=== PATIENT | female | born 1945 | race Caucasian/White ===

== ENCOUNTER → 2017-04-07 | Outpatient (CLI) | payer MEDICARE, BC ==
[~2017-04-07] MED LIST: ACET-62 PO; ACET1TAB12 PO; ASPI-557 PO; CALC-191 PO; CRAN500C3 PO; GADOBUTROL 10mMol/10ml INJECTION IV ONE; IOTHALAMATE MEGLUMINE 60% (600mg/ml) 30ml INJ IV ONE; LATA2.5D6 BOTH EYES; LISI10TA7 PO; LOVA20TA3 PO; METF500T4 PO; NORMAL SALINE 50 ML IV ONE
--- NOTE | 2017-04-07 14:44 | DI ---
Indication:ITS.REASON: M25.511 PAIN IN RT SHOULDER Procedure:ARTHROGRAM SHOULDER RT W/FL. SHOULDER INJECTION FOR MRI ARTHROGRAM: After discussing the details of the procedure, including the risks, the patient wished to proceed. Informed consent was obtained. A preprocedural timeout was performed to confirm the correct patient and procedure. Using aseptic technique, local lidocaine anesthetic, and fluoroscopic guidance throughout, a 22-gauge infiltrating needle was directed through the rotator cuff interval and into the joint of the right shoulder. A small amount of x-ray contrast was injected to confirm proper intra-articular placement of the needle tip. A fluoroscopic image was obtained. Following this, 8 cc of dilute gadolinium were slowly instilled within the joint of the right shoulder. The needle was removed. The patient tolerated this procedure well. Following this, the patient was taken by wheelchair to MRI for her scan. Please see the separate MRI report. Impression: Technically successful right intra-articular shoulder joint injection for a MRI arthrogram. Fluoroscopy dose: 0.89 mGy (Cumulative air kerma) Parish Pelayo RPA/ARIANA performed this under my personal supervision. .
--- NOTE | 2017-04-07 16:53 | DI ---
Indication: ITS.REASON: M25.511 PAIN IN RT SHOULDER MRI SHOULDER RIGHT W/CONTRAST: Comparison: Right shoulder arthrogram earlier in the day Technique: Patient is scanned utilizing T1 and T2-weighted image sequences after intra-articular contrast is administered. Findings: Patient showed significant tear of the rotator cuff with abnormal extravasation of the gadolinium into the Spear margin of the shoulder. Patient shows some artifact from evidently a prior cuff repair. The patient shows no suggestion of an acute bony fracture. There is mild degenerative changes in the AC joint. Labrum is intact. Impression: 1. Patient showed significant tearing of the rotator cuff tendon after a previous repair. There is abnormal extravasation of the gadolinium superiorly above the cuff. 2. No acute fracture identified. There is some alteration in the signal about the humeral head but this is most likely due to artifact from the prior surgery. 3. Degenerative changes about the AC joint. .
== END ==
LOC: IMA 12:22
PROVIDERS: ATTEND Physician Assistant Surgical
DX: M25.511 Pain in right shoulder (principal); M75.101 Unspecified rotator cuff tear or rupture of right shoulder, not specified as traumatic; M19.011 Primary osteoarthritis, right shoulder
CPT/HCPCS: 23350; 73222; 77002; A9585; J7050; Q9961

== ENCOUNTER 2018-06-10 10:27 | Observation (INO) ==
--- OUTSIDE RECORDS SUMMARY | 2018-06-10 11:08 | External Medical Summary | Referral Summary ---
:1945 Author Organization [facility] Address [address] [place] [address] Care Team Providers Name Role Phone Beata Sánchez Primary Care Physician Encounter [facility] [id number] Date(s): 12/17/17 - 12/17/17 [facility] [address] [address] [place] [address]- [place] Discharge Diagnosis: Orthopedic aftercare Discharge Disposition: 01-Home or Self Care Attending Physician: Lucia Harrison APRN Admitting Physician: Lucia Harrison APRN Vital Signs Most recent to oldest [Reference Range]: 1 Respiratory Rate [14-20 br/min] 18 br/min (12/17/17 1:35 PM) Problem List Condition Effective Dates Status Health Status Informant Chronic renal insufficiency(Confirmed) Active High cholesterol(Confirmed) Active Hypertension(Confirmed) Active Obesity(Confirmed) Active patient Diabetes mellitus type II, 08/07/16 Active controlled(Confirmed) Allergies, Adverse Reactions, Alerts Substance Reaction Severity Status oxyCODONE VOMITING Active HYDROcodone Active Medications Aspir 81 oral delayed release tablet 81 mg 1 tabs, Oral, Daily, OTC, # 30 tabs, 0 Refill(s), other reason (Rx) Start Date: 08/15/16 Status: OrderedCozaar 25 mg oral tablet 25 mg 1 tabs, Oral, Daily, # 90 tabs, 1 Refill(s), Pharmacy: [facility], To replace Lisinopril, 1 tabs Oral Daily Start Date: 02/17/17 Status: Orderedcranberry 1 tabs, Oral, Daily, 0 Refill(s) Start Date: 08/28/16 Status: OrderedEye Drops Eye Drops, See Instructions, 1 drop each eye daily for glaucoma, 0 Refill(s) Start Date: 10/28/14 Status: Orderedgabapentin 300 mg oral capsule 300 mg 1 caps, Oral, Bedtime (once a day), # 30 caps, 0 Refill(s), Pharmacy: [facility] 2428,1 caps Oral Bedtime (once a day) Start Date: 08/06/17 Status: Orderedlovastatin 20 mg oral tablet See Instructions, TAKE 1 TABLET EVERY DAY-DISCONTINUE ALTOPREV, # 90 tabs, 3 Refill(s), eRx: [facility], TAKE 1 TABLET EVERY DAY- DISCONTINUE ALTOPREV Start Date: 10/18/16 Status: OrderedmetFORMIN 500 mg oral tablet 500 mg 1 tabs, Oral, BID, # 180 tabs, 1 Refill(s), Pharmacy: [facility] Delivery, Do not fill the 30 day supply, use this RX., 1 tabs Oral BID Start Date: 05/05/17 Status: OrderedOne touch vario control solutions One touch vario control solutions, See Instructions, use to monitor quality assurance calibrator of glucose meteras needed. DX: E11.65, # 1 Each, 0 Refill(s), Pharmacy: [facility] 2428, use to monitor quality assurance calibrator of glucose meter as needed. DX: E11.65 Start Date: 08/29/16 Status: OrderedOne touch vario lancets One touch vario lancets, See Instructions, Use to test blood sugars bid fasting and 2 hours postprandial of one meal. DX: E11.65, # 200 Each, 1 Refill(s), Pharmacy: [facility], Use to test blood sugars bid fasting and 2 hours postprandi... Start Date: 08/29/16 Status: OrderedOne Touch Vario Test Strips One Touch Vario Test Strips, See Instructions, Use to test blood sugars bid fasting and 2 hours postprandial of one meal. DX: E11.65, # 200 Each, 1 Refill(s), Pharmacy: [facility], Use to test blood sugars bid fasting and 2 hours postpr... Start Date: 08/29/16 Status: OrderedProbiotic Formula 1 caps, Oral, Daily, 0 Refill(s) Start Date: 08/06/17 Status: OrderedTylenol Extra Strength 500 mg oral tablet mg tabs, Oral, q6hr, as needed for fever, 0 Refill(s) Start Date: 08/06/17 Status: Ordered Immunizations Given and Recorded Vaccine Date Status Refusal Reason influenza virus vaccine, inactivated 09/24/16 Given influenza virus vaccine, inactivated 09/14/15 Given influenza virus vaccine, inactivated1 08/26/14 Recorded pneumococcal 13-valent conjugate vaccine 08/15/16 Given tetanus/diphth/pertuss (Tdap) adult/adol 08/15/16 Given pneumococcal 23-polyvalent vaccine 08/31/13 Recorded influenza virus vaccine, live 08/31/13 Given influenza virus vaccine, live 08/18/12 Given tetanus-diphth toxoids (Td) adult/adol 04/15/01 Given 1Location History: See scanned document Procedures Procedure Date Related Diagnosis Body Site Status post reverse arthroplasty of right 06/24/17 shoulder History of arthroscopy of right shoulder1 10/29/16 Colonoscopic polypectomy2 08/09/15 Hip replacement R 2007 Vaginal hysterectomy for prolapse 2001 1Open biceps tenodesis, hardware [id number] adenoma 2, no diverticula seen, repeat in 5 years Social History Social History Type Response Smoking Status Never smoker entered on: 10/28/14 Assessment and Plan Extracted from: Title: Office Visit Note Author: Lucia Harrison APRN Date: 12/17/17 Orthopedic aftercare X-rays were reviewed with the patient in detail. The patient was given a stress balland told touse daily toimprove the strength in her hand. She was given hand exercises to completeto help w ith the numbness and tingling. She is to call the office if her n/t persists over the next 2-3 months. She is to follow-up for her shoulderin [address] Musa for her 1 yr post-op. Pt is in agreement with this plan. All questions were answered and concerns addressed in clinic. The patient was given my card and instructed to call with any further concerns or questions. Ordered: Office Visit Level 3 Est 79273 Right shoulder pain
--- OUTSIDE RECORDS SUMMARY | 2018-06-10 11:08 | External Medical Summary | Referral Summary ---
:1945 Author Organization [facility] Address [address] [place] [address] Care Team Providers Name Role Phone Beata Sánchez Primary Care Physician Juan Manuel Lin Primary Care Physician Encounter [facility] Date(s): 02/23/18 - 02/23/18 [facility] [address] [address] [place] [address]- Encounter Diagnosis Neuropraxia of right ulnar nerve (Discharge Diagnosis) - 02/23/18 Discharge Disposition: 01-Home or Self Care Attending Physician: Benny Sheldon MD Admitting Physician: Benny Sheldon MD Vital Signs Most recent to oldest [Reference Range]: 1 Respiratory Rate [14-20 br/min] 19 br/min (02/23/18 1:21 PM) Problem List Condition Effective Dates Status [...] Daily, # 90 tabs, 1 Refill(s), Pharmacy: [facility], To replace Lisinopril, 1 tabs Oral Daily Start Date: 02/17/17 Status: Orderedcranberry 1 tabs, Oral, Daily, 0 Refill(s) Start Date: 08/28/16 Status: Orderedgabapentin 300 mg oral capsule 300 mg 1 caps, Oral, Bedtime (once a day), # 30 caps, 0 Refill(s), Pharmacy: [facility] 2428,1 caps Oral Bedtime (once a day) Start Date: 08/06/17 Status: Orderedlovastatin 20 mg oral tablet See Instructions, TAKE 1 TABLET EVERY DAY-DISCONTINUE ALTOPREV, # 90 tabs, 3 Refill(s), eRx: [facility], TAKE 1 TABLET EVERY DAY- DISCONTINUE ALTOPREV Start Date: 10/18/16 Status: OrderedmetFORMIN 500 mg oral tablet 500 mg 1 tabs, Oral, BID, # 180 tabs, 1 Refill(s), Pharmacy: [facility], Do not fill the 30 day supply, use this RX., 1 tabs Oral BID Start Date: 05/05/17 Status: OrderedOne touch vario control solutions One touch vario control solutions, See Instructions, use to monitor quality liaison of glucose meteras needed. DX: E11.65, # 1 Each, 0 Refill(s), Pharmacy: [facility], use to monitor quality liaison of glucose meter as needed. DX: E11.65 Start Date: 08/29/16 Status: OrderedOne touch vario lancets One touch vario lancets, See Instructions, Use to test blood sugars bid fasting and 2 hours postprandial of one meal. DX: E11.65, # 200 Each, 1 Refill(s), Pharmacy: [facility]28, Use to test blood sugars bid fasting and 2 hours postprandi... Start Date: 08/29/16 Status: OrderedOne Touch Vario Test Strips One Touch Vario Test Strips, See Instructions, Use to test blood sugars bid fasting and 2 hours postprandial of one meal. DX: E11.65, # 200 Each, 1 Refill(s), Pharmacy: [facility]28, Use to test blood sugars [...] 08/15/16 Given tetanus/diphth/pertuss (Tdap) adult/adol 08/15/16 Given influenza virus vaccine, live 08/31/13 Given influenza virus vaccine, live 08/18/12 Given pneumococcal 23-polyvalent vaccine 08/31/13 Recorded tetanus-diphth toxoids (Td) adult/adol 04/15/01 Given 1Location History: See scanned document Procedures Procedure Date Related Diagnosis Body Site Status Status post reverse arthroplasty of 06/24/17 Completed right shoulder History of arthroscopy of right 10/29/16 Completed shoulder1 Colonoscopic polypectomy2 08/09/15 Completed Hip replacement R 2007 Completed Vaginal hysterectomy for prolapse 2001 Completed 1Open biceps tenodesis, hardware [id number] adenoma 2, no diverticula seen, repeat in 5 years Social History Social History Type Response Smoking Status Never smoker entered on: 10/28/14 Assessment and Plan Extracted from: Title: GILA New Patient Author: Benny Sheldon MD Date: 02/23/18 Impression and Plan Diagnosis Neuropraxia of right ulnar nerve ([id number] S54.01XA, Discharge, Medical). Course: Progressing as expected. Patient Instructions: Counseled: Patient, Regarding diagnosis, Verbalized understanding. Orders Orders (Selected) Outpatient Orders Ordered Office Visit Level 3 New [address]: . Dx and Plan Dx/Order Association Plan: Diagnosis: 1. Neurapraxia of right ulnar nerve Comment: This is a 72 year-old female, NTY(dominguez for RT shoulder) numbness/tingling in RT ring and small fingers. EMG/NCT attached. We reviewed the nerve conduction study together, which appears normal. She has normal conduction velocities of the ulnar nerve along with a normal amplitude within the nerve itself. There are no signs on clinical examination of the points of compression along the ulnar nerve . The pt has neurapraxia of the R ulnar nerve likely more proximal.. I counseled the pt stating I believe her R ulnar nerve will recover over time. She may not recover completely with respect to sensa tion, however I don't believe that this should continue to cause her pain over the long-term. I recommend the pt take magnesium, zinc, vitamin B12 for nerve growth along with her multivitamin daily. I encouraged the pt discontinue use of Gabapentin gradually. The pt will f/u as needed. .
--- OUTSIDE RECORDS SUMMARY | 2018-06-10 11:08 | External Medical Summary | Referral Summary ---
:1945 Author Organization [facility] Address [address] [place] [address] Care Team Providers Name Role Phone Beata Sánchez Primary Care Physician Juan Manuel Lin Primary Care Physician Encounter [facility] Date(s): 02/11/18 - 02/11/18 [facility] [address] [address] [place] [address]- Discharge Disposition: 01-Home or Self Care Attending Physician: Germain Musa MD Admitting Physician: Germain Musa MD Vital Signs Most recent to oldest [Reference Range]: 1 Respiratory Rate [14-20 br/min] 16 br/min (02/11/18 2:41 PM) Problem List Condition Effective Dates Status [...] Daily, # 90 tabs, 1 Refill(s), [facility]: [facility], To replace Lisinopril, 1 tabs Oral Daily Start Date: 02/17/17 Status: Orderedcranberry 1 tabs, Oral, Daily, 0 Refill(s) Start Date: 08/28/16 Status: Orderedgabapentin 300 mg oral capsule 300 mg 1 caps, Oral, Bedtime (once a day), # 30 caps, 0 Refill(s), Pharmacy: [facility] 2428,1 caps Oral Bedtime (once a day) Start Date: 08/06/17 Status: Orderedlovastatin 20 mg oral tablet See Instructions, TAKE 1 TABLET EVERY DAY-DISCONTINUE ALTOPREV, # 90 tabs, 3 Refill(s), eRx: [facility], TAKE 1 TABLET EVERY DAY- DISCONTINUE ALTOPREV Start Date: 10/18/16 Status: OrderedmetFORMIN 500 mg oral tablet 500 mg 1 tabs, Oral, BID, # 180 tabs, 1 Refill(s), Pharmacy: [facility], Do not fill the 30 day supply, use this RX., 1 tabs Oral BID Start Date: 05/05/17 Status: OrderedOne touch vario control solutions One touch vario control solutions, See Instructions, use to monitor quality assurance assessor of glucose meteras needed. DX: E11.65, # 1 Each, 0 Refill(s), Pharmacy: [facility] 2428, use to monitor quality assurance assessor of glucose meter as needed. DX: E11.65 Start Date: 08/29/16 Status: OrderedOne touch vario lancets One touch vario lancets, See Instructions, Use to test blood sugars bid fasting and 2 hours postprandial of one meal. DX: E11.65, # 200 Each, 1 Refill(s), Pharmacy: [facility] 2428, Use to test blood sugars bid fasting and 2 hours postprandi... Start Date: 08/29/16 Status: OrderedOne Touch Vario Test Strips One Touch Vario Test Strips, See Instructions, Use to test blood sugars bid fasting and 2 hours postprandial of one meal. DX: E11.65, # 200 Each, 1 Refill(s), Pharmacy: [facility] 2428, Use to test blood [...] Colonoscopic polypectomy2 08/09/15 Completed Hip replacement R 2008 Completed Vaginal hysterectomy for prolapse 2001 Completed 1Open biceps tenodesis, hardware [id number] adenoma 2, no diverticula seen, repeat in 5 years Social History Social History Type Response Smoking Status Never smoker entered on: 10/28/14
--- OUTSIDE RECORDS SUMMARY | 2018-06-10 11:08 | External Medical Summary | Referral Summary ---
:1945 Author Organization [facility] Address [address] [place] [address] Care Team Providers Name Role Phone Riley Juan Manuel Shah Primary Care Physician Encounter [facility] Date(s): 05/12/17 - 05/12/17 [facility] [address] [address] [place] [address]- [place] Discharge Diagnosis: Rotator cuff tear arthropathy of right shoulder Discharge Diagnosis: S/P rotator cuff repair Discharge Disposition: 01-Home or Self Care Attending Physician: Germain Musa MD Admitting Physician: Germain Musa MD Referring Physician: Parish Moreno MD Vital Signs No data available for this section Problem List Condition Effective Dates Status Health Status Informant Chronic renal insufficiency(Confirmed) Active High cholesterol(Confirmed) Active Hypertension(Confirmed) Active Obesity(Confirmed) Active patient Diabetes mellitus type II, 08/07/16 Active controlled(Confirmed) Allergies, Adverse Reactions, Alerts Substance Reaction Severity Status HYDROcodone Active oxyCODONE VOMITING Active Medications acetaminophen 500 mg, Bedtime (once a day), 0 Refill(s) Start Date: 05/12/17 Status: OrderedAspir 81 oral delayed release tablet 81 mg 1 tabs, Oral, Daily, OTC, # 30 tabs, 0 Refill(s), other reason (Rx) Start Date: 08/15/16 Status: OrderedCozaar 25 mg oral tablet 25 mg 1 tabs, Oral, Daily, # 90 tabs, 1 Refill(s), Pharmacy: [facility], To replace Lisinopril, 1 tabs Oral Daily Start Date: 02/17/17 Status: Orderedcranberry 1 tabs, Oral, Daily, 0 Refill(s) Start Date: 08/28/16 Status: OrderedEye Drops Eye Drops, See Instructions, 1 drop each eye daily for glaucoma, 0 Refill(s) Start Date: 10/28/14 Status: Orderedlovastatin 20 mg oral tablet See Instructions, TAKE 1 TABLET EVERY DAY-DISCONTINUE ALTOPREV, # 90 tabs, 3 Refill(s), eRx: [facility], TAKE 1 TABLET EVERY DAY- DISCONTINUE ALTOPREV Start Date: 10/18/16 Status: OrderedmetFORMIN 500 mg oral tablet 500 mg 1 tabs, Oral, BID, # 180 tabs, 1 Refill(s), Pharmacy: [facility], Do not fill the 30 day supply, use this RX., 1 tabs Oral BID Start Date: 05/05/17 Status: OrderedOne touch vario control solutions One touch vario control solutions, See Instructions, use to monitor quality improvement coordinator of glucose meteras needed. DX: E11.65, # 1 Each, 0 Refill(s), Pharmacy: [facility] 2428, use to monitor quality improvement coordinator of glucose meter as needed. DX: E11.65 Start Date: 08/29/16 Status: OrderedOne touch vario lancets One touch vario lancets, See Instructions, Use to test blood sugars bid fasting and 2 hours postprandial of one meal. DX: E11.65, # 200 Each, 1 Refill(s), Pharmacy: [facility] 2428, Use to test blood sugars bid fasting and 2 hours postprandi... Start Date: 08/29/16 Status: OrderedOne Touch Vario Test Strips One Touch Vario Test Strips, See Instructions, Use to test blood sugars bid fasting and 2 hours postprandial of one meal. DX: E11.65, # 200 Each, 1 Refill(s), Pharmacy: [facility]28, Use to test blood sugars bid fasting and 2 hours postpr... Start Date: 08/29/16 Status: Ordered Results No data available for this section Immunizations Given and Recorded Vaccine Date Status Refusal Reason tetanus/diphth/pertuss (Tdap) adult/adol 08/15/16 Given influenza virus vaccine, inactivated 09/24/16 Given influenza virus vaccine, inactivated 09/14/15 Given influenza virus vaccine, inactivated1 08/26/14 Recorded influenza virus vaccine, live 08/31/13 Given influenza virus vaccine, live 08/18/12 Given pneumococcal 13-valent conjugate vaccine 08/15/16 Given pneumococcal 23-polyvalent vaccine 08/31/13 Recorded tetanus-diphth toxoids (Td) adult/adol 04/15/01 Given 1Location History: See scanned document Procedures Procedure Date Related Diagnosis Body Site History of arthroscopy of right shoulder 10/29/16 Colonoscopic polypectomy1 08/09/15 Hip replacement R 2007 Vaginal hysterectomy for prolapse 2001 1Tubular adenoma 2, no diverticula seen, repeat in 5 years Social History Social History Type Response Smoking Status Never smoker Assessment and Plan Extracted from: Title: SB Shoulder Author: Germain Musa MD Date: 05/12/17 Impression and Plan Diagnosis Rotator cuff tear arthropathy of right shoulder ([id number] M12.811, Discharge, Medical). S/P rotator cuff repair ([id number] Z98.890, Discharge, Medical). Course: Worsening. Patient Instructions: Counseled: Patient, Regarding diagnosis, Verbalized understanding. Orders Orders (Selected) Outpatient Orders Ordered Office Visit Level 3 New 33055: Future (On Hold) Shoulder XR Complete Right: Prescriptions Prescribed metFORMIN 500 mg oral tablet: 500 mg=1 tabs, Oral, BID, 180 tabs, 1 Refill(s). Dx/Order Association Plan: Diagnosis: Rotator cuff tear arthropathy of right shoulder Comment: MRI reviewed and discussed with the pt. Based on today 's assessment, she has reruptured the rotator cuff. A 25 minute discussion regarding further management was held today with the patient at bedside. The pertinent anatomy and pathologic changes to the shoulder were reviewed at the bedside today, and plas tic models were used to reinforce these concepts. The risks, benefits, and alternatives of the nonoperative and operative management options were discussed at length, and the patient has selected opera tive treatment. The proposed procedure is right shoulder reverse shoulder arthroplasty. Plastic models were used to discuss the implants, and particular attention was paid to the surgical technique. The specific risk of dislocation and hematoma were also reviewed at length, as were the activity restrictions. The patient voiced understanding that there is a 25 pound weight limit to operative the ar m. The need for protecting the subscapularis repair as well as strict adherence to the postoperative physical therapy were also emphasized to the patient. The hospital stay was discussed, and the bridget ent will need preoperative medical clearance and inpatient medical management by the hospitalist service. After this discussion, the patient wished to proceed with surgery and will meet with the johnnie riley today. Followup will be approximately 2 weeks post-op. Diagnosis: S/P rotator cuff repair Comment: . This note is prepared by Justice Mejia, acting as medical office rep for Germain Musa MD. Germain Musa MD. The scribe's documentation has been prepared under my direction and personally reviewed by me in its entirety. I confirm that the note above accurately reflects all work, treatmen t, procedures, and medical decision making performed by me.
--- OUTSIDE RECORDS SUMMARY | 2018-06-10 11:08 | External Medical Summary | Referral Summary ---
:1945 Author Organization [facility] Address [address] [place] [address] Care Team Providers Name Role Phone Beata Sánchez Primary Care Physician Encounter [facility] [id number] Date(s): 09/17/17 - 09/17/17 [facility] [address] [facility] [address] [place] [address]- us Discharge Disposition: 01-Home or Self Care Attending Physician: Cass Atkins APRN Admitting Physician: Cass Atkins APRN Vital Signs Most recent to oldest [Reference Range]: 1 Respiratory Rate [14-20 br/min] 17 br/min (09/17/17 10:14 AM) Problem List Condition Effective Dates Status Health [...] Daily, # 90 tabs, 1 Refill(s), Pharmacy: [email or web address], To replace Lisinopril, 1 [...] day), # 30 caps, 0 Refill(s), Pharmacy: [facility],1 caps Oral Bedtime (once a day) Start Date: 08/06/17 Status: Orderedlovastatin 20 mg oral tablet See Instructions, TAKE 1 TABLET EVERY DAY-DISCONTINUE ALTOPREV, # 90 tabs, 3 Refill(s), eRx: [facility] Mail Delivery, TAKE 1 TABLET EVERY DAY- DISCONTINUE ALTOPREV Start Date: 10/18/16 Status: OrderedmetFORMIN 500 mg oral tablet 500 mg 1 tabs, Oral, BID, # 180 tabs, 1 Refill(s), Pharmacy: [facility] Mail Delivery, Do not fill the 30 day supply, use this RX., 1 tabs Oral BID Start Date: 05/05/17 Status: OrderedOne touch vario control solutions One touch vario control solutions, See Instructions, use to monitor quality control associate of glucose meteras needed. DX: E11.65, # 1 Each, 0 Refill(s), Pharmacy: [facility], use to monitor quality control associate of glucose meter as needed. DX: E11.65 Start Date: 08/29/16 Status: OrderedOne touch vario lancets One touch vario lancets, See Instructions, Use to test blood sugars bid fasting and 2 hours postprandial of one meal. DX: E11.65, # 200 Each, 1 Refill(s), Pharmacy: [facility], Use to test blood sugars bid fasting and 2 hours postprandi... Start Date: 08/29/16 Status: OrderedOne Touch Vario Test Strips One Touch Vario Test Strips, See Instructions, Use to test blood sugars bid fasting and 2 hours postprandial of one meal. DX: E11.65, # 200 Each, 1 Refill(s), Pharmacy: [facility], Use to test blood [...] for prolapse 2001 1Open biceps tenodesis, hardware [id number] adenoma 2, no diverticula seen, repeat in 5 years Social History Social History Type Response Smoking Status Never smoker entered on: 10/28/14 Assessment and Plan Extracted from: Title: Office Visit Note Author: Cass Atkins APRN Date: 09/17/17 Orthopedic aftercare Patient is currently 12 weeks postop. Patient was given a new physical therapy prescription to include strengthening at this time. Patient will follow up with us again in 1 month for reevaluatio n of range of motion and strength. Pt is in agreement with this plan. All questions where answered in clinic. My card was given to the pt and told to call if they have any questions or concerns. Ordered: Office Visit Level 3 Est 39247
--- OUTSIDE RECORDS SUMMARY | 2018-06-10 11:09 | External Medical Summary | Referral Summary ---
:1945 Author Organization [facility] Address [address] [place] [address] [place] [address] Care Team Providers Name Role Phone Juan Manuel Lin Primary Care Physician Encounter [facility] [id number] Date(s): 01/16/17 - 01/16/17 [facility] [address] [place] [address]- [place] Discharge Diagnosis: Neuropathy of left foot Discharge Diagnosis: Diabetes mellitus type II, controlled Discharge Diagnosis: High cholesterol Discharge Diagnosis: Hypertension Discharge Diagnosis: Need for hepatitis C screening test Discharge Diagnosis: Postmenopausal Discharge Disposition: 01-Home or Self Care Attending Physician: Samantha Aparicio PA-C Admitting Physician: Samantha Aparicio PA-C Vital Signs Most recent to oldest [Reference Range]: 1 Temperature Tympanic [36.6-38.1 degC] 36.6 degC (01/16/17 8:36 AM) Peripheral Pulse Rate [60-100 bpm] 76 bpm (01/16/17 8:36 AM) Blood Pressure [90-140/60-90 mmHg] 110/68 mmHg (01/16/17 8:36 AM) Problem List Condition Effective Dates Status Health Status Informant High cholesterol(Confirmed) Active Hypertension(Confirmed) Active Obesity(Confirmed) Active patient Diabetes mellitus type II, 08/07/16 Active controlled(Confirmed) Allergies, Adverse Reactions, Alerts Substance Reaction Severity Status HYDROcodone Active oxyCODONE VOMITING Active Medications acetaminophen 325 mg oral tablet 650 mg 2 tabs, Oral, QID, as needed for pain, 0 Refill(s) Start Date: 10/17/16 Status: OrderedAspir 81 oral delayed release tablet 81 mg 1 tabs, Oral, Daily, OTC, # 30 tabs, 0 Refill(s), other reason (Rx) Start Date: 08/15/16 Status: Orderedcranberry 1 tabs, Oral, Daily, 0 Refill(s) Start Date: 08/28/16 Status: OrderedEye Drops Eye Drops, See Instructions, 1 drop each eye daily for glaucoma, 0 Refill(s) Start Date: 10/28/14 Status: Orderedlisinopril 10 mg oral tablet 10 mg 1 tabs, Oral, Daily, # 90 tabs, 1 Refill(s), Pharmacy: [facility] Delivery, Do not fill the 30 day supply, use this RX., 1 tabs Oral Daily Start Date: 09/13/16 Status: Orderedlovastatin 20 mg oral tablet See Instructions, TAKE 1 TABLET EVERY DAY-DISCONTINUE ALTOPREV, # 90 tabs, 3 Refill(s), eRx: [facility], TAKE 1 TABLET EVERY DAY- DISCONTINUE ALTOPREV Start Date: 10/18/16 Status: OrderedmetFORMIN 500 mg oral tablet 500 mg 1 tabs, Oral, BID, # 180 tabs, 1 Refill(s), Pharmacy: [facility] Delivery, Do not fill the 30 day supply, use this RX., 1 tabs Oral BID Start Date: 09/13/16 Status: OrderedOne touch vario control solutions One touch vario control solutions, See Instructions, use to monitor design quality engineer of glucose meteras needed. DX: E11.65, # 1 Each, 0 Refill(s), Pharmacy: [facility], use to monitor design quality engineer of glucose meter as needed. DX: E11.65 Start Date: 08/29/16 Status: OrderedOne touch vario lancets One touch vario lancets, See Instructions, Use to test blood sugars bid fasting and 2 hours postprandial of one meal. DX: E11.65, # 200 Each, 1 Refill(s), [facility], Use to test blood sugars bid fasting and 2 hours postprandi... Start Date: 08/29/16 Status: OrderedOne Touch Vario Test Strips One Touch Vario Test Strips, See Instructions, Use to test blood sugars bid fasting and 2 hours postprandial of one meal. DX: E11.65, # 200 Each, 1 Refill(s), Pharmacy: [facility], Use to test blood sugars bid fasting and 2 hours postpr... Start Date: 08/29/16 Status: OrderedtraMADol See Instructions, as needed for pain, 50 MG TAKING PRN PRIOR TO PT, 0 Refill(s) Start Date: 12/31/16 Status: Ordered Results Chemistry Most recent to oldest [Reference Range]: 1 Sodium Lvl [135-144 mEq/L] 141 mEq/L (01/16/17 9:27 AM) Potassium Lvl [3.5-5.2 mEq/L] 4.7 mEq/L (01/16/17 9:27 AM) Chloride [99-111 mEq/L] 109 mEq/L (01/16/17 9:27 AM) CO2 [22-31 mEq/L] 24 mEq/L (01/16/17 9:27 AM) AGAP [3-20] 8 (01/16/17 9:27 AM) BUN [10-20 mg/dL] 22 mg/dL *HI* (01/16/17 9:27 AM) Glucose Lvl [70-99 mg/dL] 99 mg/dL (01/16/17 9:27 AM) Creatinine Lvl [0.57-1.11 mg/dL] 1.24 mg/dL *HI* (01/16/17 9:27 AM) eGFR [>60 mL/min] 43 mL/min 1 *ABN* (01/16/17 9:27 AM) Calcium Lvl [8.4-10.2 mg/dL] 10.1 mg/dL 2 (01/16/17 9:27 AM) Hep A IgM Negative (01/16/17 9:27 AM) Hep Bs Ag Negative (01/16/17 9:27 AM) Hep C Ab Negative (01/16/17 9:27 AM) Hep B Core IgM Negative (01/16/17 9:27 AM) Hgb A1c [4.1-5.6 %] 6.1 % *HI* (01/16/17 9:27 AM) eAvg Glucose 128.4 mg/dL (01/16/17 9:27 AM) 1Result Comment: Multiply eGFR results by 1.21 for race.2Result Comment: Please note reference range change effective 12/20/2016. Immunizations Given and Recorded Vaccine Date Status Refusal Reason tetanus/diphth/pertuss (Tdap) adult/adol 9/29/16 Given influenza virus vaccine, inactivated 09/24/16 Given [...] smoker Assessment and Plan Extracted from: Title: Office Visit Note- Med Ck Author: Samantha Aparicio PA-C Date: Assessment/Plan Diabetes mellitus type II, controlled From her BG log, it appears that her DM is under good control. Will check HgbA1C and BMP today. Need to recheck renal function. Continue on Metformin at this time. May want to write down foods and activity with her BG log. Recheck in 6 months. Ordered: Basic Metabolic Panel Hemoglobin A1c Office Visit Level 4 Est 63022 High cholesterol Continue with Lovastatin at this time. Can recheck lipids in July. Ordered: Office Visit Level 4 Est 50836 Hypertension BP has been stable on Lisinopril. BMP today. Ordered: Basic Metabolic Panel Office Visit Level 4 Est 38905 Need for hepatitis C screening test Requested Hepatitis screen. Asx at this time. Ordered: Hepatitis Panel Office Visit Level 4 Est 59366 Neuropathy of left foot It sounds like neuropathy is starting to the L foot. It is very infrequent at this time. Continue to examine feet daily. Needs foot exam again in July. Could try Vitamin B complex. Ordered: Office Visit Level 4 Est 02007 Postmenopausal D/w pt that she is due for DEXA scan. Will check Vit D level as well to see if supplementation is needed. Ptto schedule DEXA. Ordered: Office Visit Level 4 Est 29072 Vitamin D 25 Hydroxy Level
[2018-06-10 11:40] VITALS: BMI 34.0
[2018-06-10] MEDS ORDERED: SALINE FLUSH 10ml SYRINGE IV PRN (12:03)
--- NOTE | 2018-06-10 12:47 | Cardiology History & Physical ---
History of Present Illness Chief complaint: palpitations HPI: Oscar is a 72 year old female who is known to Dr. Huertas's practice with a history of palpitations, TIA, HTN, HLD and type II DM who was seen 2 weeks ago in clinic and scheduled for PIETER monitor. Today her monitor recorded an episode of atrial fibrillation with rate of 225. She was contacted by our office for direct admission for further evaluation of arrhythmia. Upon arrival she is in SR and asymptomatic. Review of Systems - Constitutional Constitutional: Absent: chills, fatigue, fever(s) - EENMT Eyes: Absent: change in vision Balance: Absent: vertigo Mouth/Throat: Absent: sore throat - Cardiovascular Cardiovascular: Present: palpitations (occasionally). Absent: chest pain, syncope, dyspnea on exertion, orthopnea, heart murmur Rhythm: Absent: abnormal rhythm Vascular: Absent: pedal edema - Respiratory Respiratory: Absent: cough, dyspnea on exertion - Gastrointestinal Gastrointestinal: Absent: diarrhea, nausea, vomiting - Genitourinary Genitourinary: Absent: dysuria - Integumentary/Breasts Integumentary: Absent: rash - Neurological Neurological: Absent: dizziness PFSH Patient Stated Medical History Peripheral Neuropathy Yes: nerve damage from shoulder sx Hypertension Yes: on losartan Diabetes Mellitus Type 2 Yes Post Menopausal Yes Clinic Medical History (Last Updated 04/11/18 @ 09:36 by BI Rodriguez) HTN (hypertension) (Acute Medical) Nerve disorder (Acute Medical) Surgical History: * Right Shoulder. * Hysterectomy. * Right Hip Replacement Family History: Family History (Last Updated 04/11/18 @ 09:38 by BI Rodriguez) Mother Cancer of lung Father Heart attack High blood pressure - Social History Smoking status: Never smoker Substance use type: does not use Alcohol intake frequency: does not drink Housing: house Household members: spouse Current occupational status: retired Medications Home Medications Medication Instructions Recorded Confirmed Type Acetaminophen with Codeine 1 - 2 tab PO Q4H PRN #60 tab 11/04/16 06/10/18 Rx [Tylenol with Codeine #3 (300/30)] Cozaar (losartan) 25 mg tablet 25 mg PO DAILY 04/11/18 06/10/18 History Neurontin (gabapentin) 300 mg 300 mg PO BID cap 04/11/18 06/10/18 History capsule Aspirin 1 tab PO DAILY 06/10/18 06/10/18 History Cranberry 500 mg PO HS 06/10/18 06/10/18 History Lactobacill 46/B.animal/Inulin 1 each PO DAILY 06/10/18 06/10/18 History [Probiotic-10 10 Bill Cell Cap] Lovastatin [Mevacor] 20 mg PO HS 06/10/18 06/10/18 History Metformin [Glucophage] 500 mg PO BIDWM 06/10/18 06/10/18 History Allergies Allergy/AdvReac Type Severity Reaction Status Date / Time hydrocodone Allergy Verified 06/10/18 13:33 hydrocodone bit Allergy Unknown Uncoded 04/11/18 09:32 oxycodone HCl Allergy Unknown Uncoded 04/11/18 09:32 Exam Vital signs: Temperature 98.3 F 06/10/18 11:36 Pulse Rate 115 H 06/10/18 12:03 Respiratory Rate 16 06/10/18 11:36 Blood Pressure 144/91 H 06/10/18 11:36 Pulse Oximetry 96 06/10/18 11:36 - Constitutional no acute distress, well nourished, cooperative - Routine HEENT Exam Head: Present: normocephalic ENT: Present: mucous membranes moist - Routine Neck Exam Absent: JVD, carotid bruit - Routine Chest/Breast/Axilla Exam Chest wall: Absent: tenderness - Routine Respiratory Exam Present: CTA bilaterally. Absent: dyspnea, rales, wheezes - Routine Cardiovascular Exam Present: no murmur, irregular rhythm - Routine Abdominal Exam Present: soft, non tender - Routine Extremities Exam Present: no edema - Routine Skin Exam Present: intact, dry, warm - Routine Neurological Exam Present: alert, oriented X3 - Routine Psychiatric Exam Present: normal affect, normal thought process Results 06/10/18 12:15 06/10/18 12:15 Cardiac Enzymes 06/10/18 Range/Units 12:15 AST 23 (14-36) U/L CBC 06/10/18 Range/Units 12:15 WBC 6.1 (4.5-11.0) T/MM3 RBC 4.38 (4.00-5.20) M/MM3 Hgb 12.3 (12-16) GM/DL Hct 37.8 (36-46) % Plt Count 235 (130-400) T/MM3 Neut # (Auto) 3.5 (1.8-7.7) T/MM3 Lymph # (Auto) 1.8 (1-4.8) T/MM3 [place] # (Auto) 0.5 (0-0.8) T/MM3 Eos # (Auto) 0.2 (0-0.5) T/MM3 Baso # (Auto) 0.0 (0-0.2) T/MM3 Comprehensive Metabolic Panel 06/10/18 Range/Units 12:15 Sodium 148 H (136-146) MEQ/L Potassium 4.4 (3.6-5) MEQ/L Chloride 113 H (98-107) MEQ/L Carbon Dioxide 22 (22-30) MEQ/L BUN 23.0 H (7-17) MG/DL Creatinine 1.4 H (0.7-1.2) mg/dL Glucose 104 (65-110) MG/DL Calcium 9.8 (8.4-10.2) MG/DL AST 23 (14-36) U/L ALT 21 (1-35) U/L Alkaline Phosphatase 76 (38-126) U/L Total Protein 7.3 (6.3-8.2) g/dL Albumin 4.7 (3.5-5.0) g/dL Intake and Output 06/09/18 06/10/18 06/10/18 22:59 06:59 14:59 Other: Weight 204 lb 5.896 oz Patient Weight 06/11/18 06:59 Weight 204 lb 5.896 oz EKG interpretations - EKG EKG results cardiology: sinus rhythm - Dysrhythmias Supraventricular dysrhythmia: atrial premature complexes (frequent) Hospital Course This is a general summary of the patient's hospital course. For more details refer to the complete medical record. Assessment and Plan - Assessment and Plan (1) Atrial fibrillation with rapid ventricular response Current visit: Yes Status: Acute Paroxysmal A Fib/Flutter, HR 225 per PIETER monitor - Patient believes episode was with exercise at the gym - SR with frequent PACs on admit - 2D echo done yesterday at clinic - Start Eliquis 5mg by mouth every morning and evening for stroke prevention - Flecainide 50mg by mouth BID for AAT - monitor cardiac telemetry closely for arrhythmias of immediate concern - EKG in am to measure QT (2) Essential (primary) hypertension Current visit: Yes Status: Chronic well controlled on current therapy, continue current therapy (3) Mixed hyperlipidemia Current visit: Yes Status: Chronic Take Lovastatin, PCP manages (4) Type 2 diabetes mellitus without complications Current visit: Yes Status: Chronic PCP manages (5) Transient cerebral ischemic attack Current visit: Yes Status: Acute About 1 month ago had an episode where she could not remember anything - Carotid duplex 04/2018 showed minimal plaque - 2D echo done yesterday in the clinic
[2018-06-10] MEDS ORDERED: APAP/CODEINE 300 MG/30 MG TABLET PO PRN (13:27)
[2018-06-10] MEDS: FLECAINIDE 50 MG TABLET PO SCH ×2 (17:42→21:02)
[2018-06-10] MEDS: METFORMIN 500 MG TABLET PO SCH (18:06)
[2018-06-10] MEDS ORDERED: CRANBERRY PO SCH (21:00)
[2018-06-10] MEDS ORDERED: LOVASTATIN 20 MG TABLET PO SCH (21:00)
[2018-06-10] MEDS: GABAPENTIN 300 MG CAPSULE PO SCH (21:02)
[2018-06-10] MEDS: APIXABAN 5 MG TABLET PO SCH (21:03)
[2018-06-11] MEDS: APIXABAN 5 MG TABLET PO SCH (08:50)
[2018-06-11] MEDS: GABAPENTIN 300 MG CAPSULE PO SCH (08:50)
[2018-06-11] MEDS: METFORMIN 500 MG TABLET PO SCH (08:50)
[2018-06-11] MEDS: FLECAINIDE 50 MG TABLET PO SCH (08:50)
[2018-06-11] MEDS ORDERED: LOSARTAN 50 MG TABLET PO SCH (09:00)
[2018-06-11] MEDS ORDERED: LACTOBACILLUS (15B cfu) CAPSULE PO SCH (09:00)
--- NOTE | 2018-06-11 14:52 | Discharge Summary ---
Discharge Information Date of admission: 06/10/18 11:01 Anticipated date of discharge: 06/11/18 Attending Physician: Michael Luna MD Primary care physician: Beata Sánchez MD - Discharge Diagnosis (1) Atrial fibrillation with rapid ventricular response Status: Acute (2) Essential (primary) hypertension Status: Chronic (3) Mixed hyperlipidemia Status: Chronic (4) Type 2 diabetes mellitus without complications Status: Chronic (5) Transient cerebral ischemic attack Status: Acute atrial fibrillation - Laboratory Labs: 06/11/18 04:06 06/11/18 04:06 History of Present Illness HPI: Oscar is a 72 year old female who is known to Dr. Huertas's practice with a history of palpitations, TIA, HTN, HLD and type II DM who was seen 2 weeks ago in clinic and scheduled for PIETER monitor. Today her monitor recorded an episode of atrial fibrillation with rate of 225. She was contacted by our office for direct admission for further evaluation of arrhythmia. Upon arrival she is in SR and asymptomatic. Hospital Course This is a general summary of the patient's hospital course. For more details refer to the complete medical record. Hospital course: 06/10/18 Atrial fibrillation with rapid ventricular response Current visit: Yes Status: Acute - Paroxysmal A Fib/Flutter, HR 225 per PIETER monitor - Patient believes episode was with exercise at the gym - SR with frequent PACs on admit - 2D echo done yesterday at clinic - Start Eliquis 5mg by mouth every morning and evening for stroke prevention - Flecainide 50mg by mouth BID for AAT - monitor cardiac telemetry closely for arrhythmias of immediate concern - EKG in am to measure QT Essential (primary) hypertension Current visit: Yes Status: Chronic - well controlled on current therapy, continue current therapy Mixed hyperlipidemia Current visit: Yes Status: Chronic - Take Lovastatin, PCP manages Type 2 diabetes mellitus without complications Current visit: Yes Status: Chronic - PCP manages Transient cerebral ischemic attack Current visit: Yes Status: Acute - About 1 month ago had an episode where she could not remember anything - Carotid duplex 04/2018 showed minimal plaque - 2D echo done yesterday in the clinic 06/11/18 Tolerating Eliquis and Flecainide well Give evening dose at 1600 repeat EKG at 1700, call QTc Discharge to home if QTc WNL continue wearing 30 day monitor follow up with Dr. Huertas on 07/22 as scheduled Time spent with patient: 25 - 35 minutes Resuscitation Status: Full Code Exam Vital signs: Temperature 97.4 F 06/11/18 07:35 Pulse Rate 60 06/11/18 08:00 Respiratory Rate 12 06/11/18 07:35 Blood Pressure 142/84 H 06/11/18 07:35 Pulse Oximetry 97 06/11/18 07:35 - Constitutional no acute distress, well nourished, cooperative - Routine HEENT Exam Head: Present: normocephalic ENT: Present: mucous membranes moist - Routine Neck Exam Absent: JVD, carotid bruit - Routine Chest/Breast/Axilla Exam Chest wall: Absent: tenderness - Routine Respiratory Exam Present: CTA bilaterally. Absent: dyspnea, rales, wheezes - Routine Cardiovascular Exam Present: RRR, S1, S2, no murmur - Routine Abdominal Exam Present: soft, non tender - Routine Extremities Exam Present: no edema - Routine Skin Exam Present: intact, dry, warm - Routine Neurological Exam Present: alert, oriented X3 - Routine Psychiatric Exam Present: normal affect, normal thought process Results 06/11/18 04:06 06/11/18 04:06 CBC 06/11/18 Range/Units 04:06 WBC 6.1 (4.5-11.0) T/MM3 RBC 4.19 (4.00-5.20) M/MM3 Hgb 11.8 L (12-16) GM/DL Hct 36.5 (36-46) % Plt Count 228 (130-400) T/MM3 Comprehensive Metabolic Panel 06/11/18 Range/Units 04:06 Sodium 144 (136-146) MEQ/L Potassium 4.2 (3.6-5) MEQ/L Chloride 110 H (98-107) MEQ/L Carbon Dioxide 24 (22-30) MEQ/L BUN 23.0 H (7-17) MG/DL Creatinine 1.3 H D (0.7-1.2) mg/dL Glucose 97 (65-110) MG/DL Calcium 9.5 (8.4-10.2) MG/DL Intake and Output 06/10/18 06/11/18 06/11/18 22:59 06:59 14:59 Intake Total 240 / 240 230 / 230 Balance 240 / 240 230 / 230 Intake: Oral 240 / 240 230 / 230 Other: Weight 204 lb 5.896 oz 201 lb 0.985 oz Patient Weight 06/12/18 06:59 Weight 201 lb 0.985 oz - Imaging and Cardiology Imaging & Cardiology Narrative: echo done 06/09/18 at our office, see report Discharge Plan - Med Rec/Dispo Referrals/Follow Up: Jimbo Huertas MD [Physician] - 07/22/18 Prescriptions: New Flecainide [Tambocor] 50 mg PO BID #60 tab Apixaban [Eliquis] 5 mg PO BID #60 tab Continue Cranberry 500 mg PO HS Metformin [Glucophage] 500 mg PO BIDWM Lovastatin [Mevacor] 20 mg PO HS Lactobacill 46/B.animal/Inulin [Probiotic-10 10 Bill Cell Cap] 1 each PO DAILY Acetaminophen with Codeine [Tylenol with Codeine #3 (300/30)] 1 - 2 tab PO Q4H PRN #60 tab PRN Reason: PAIN Cozaar (losartan) 25 mg tablet 25 mg PO DAILY Neurontin (gabapentin) 300 mg capsule 300 mg PO BID cap Discontinued Aspirin 1 tab PO DAILY - Disposition 01 Discharged Home, Self-Care - Dismissal Complete Discharge Instructions are:: Incomplete
[2018-06-11 15:46] VITALS: BP 145/85; PULSE 77; RESP 18; TEMP 97.6; O2SAT 96
[2018-06-11] MEDS ORDERED: FLECAINIDE 50 MG TABLET PO SCH (16:00)
== END 2018-06-11 17:52 | disposition home or self-care (01) ==
LOC: MED
PROVIDERS: ADMIT Internal Medicine Interventional Cardiology; ATTEND Internal Medicine Interventional Cardiology